=== PATIENT | male | born 1945 | race Hispanic/Latino ===

== ENCOUNTER → 2017-09-17 | Outpatient (CLI) | payer OTHER ==
[~2017-09-17] MED LIST: ASPI-891 PO; BRIM5DRO4 OU; CARB25DR OU; CLOP75TA14 PO; FINA5TAB41 PO; FISH12002 PO; LATA2.5D2 OU; LISI10TA7 PO; MECL-129 PO; METH85CR TP; METO-391 PO; SIMV80TA7 PO; TRAZ-185 PO; VIT1CAPS47 PO
== END | disposition home or self-care (01) ==
LOC: SHCH 15:45
PROVIDERS: ATTEND Internal Medicine Cardiovascular Disease
DX: I10 Essential (primary) hypertension (principal)
CPT/HCPCS: 93306

== ENCOUNTER → 2017-09-21 | Outpatient (CLI) | payer OTHER ==
[~2017-09-21] MED LIST changes: +REGADENOSON 0.4 MG/5 ML PF SYG IVP SCH
== END | disposition home or self-care (01) ==
LOC: SHCH 08:17
PROVIDERS: ATTEND Internal Medicine Cardiovascular Disease
DX: I10 Essential (primary) hypertension (principal)
CPT/HCPCS: 78452; 93017; 96374; A9500 ×2; J2785

== ENCOUNTER → 2018-08-30 | Outpatient (CLI) | payer OTHER ==
[~2018-08-30] MED LIST changes: -ASPI-891 PO; +BRIM10DR16 OU; -BRIM5DRO4 OU; +CARB1DRO21 OP; -FINA5TAB41 PO; -FISH12002 PO; -MECL-129 PO; -METH85CR TP; -REGADENOSON 0.4 MG/5 ML PF SYG IVP SCH; +SERT50TA12 PO; -SIMV80TA7 PO; +SIMV80TA91 PO; +TAMS0.4C32 PO; -TRAZ-185 PO; +TRAZ-187 PO
== END | disposition home or self-care (01) ==
LOC: SHCH 13:32
PROVIDERS: ATTEND Internal Medicine Cardiovascular Disease
DX: I51.7 Cardiomegaly (principal); R94.31 Abnormal electrocardiogram [ECG] [EKG]
CPT/HCPCS: 93306

== ENCOUNTER → 2018-09-03 | Outpatient (CLI) | payer OTHER ==
[~2018-09-03] VITALS: Ht 170.2 cm; Wt 93.0 kg
[~2018-09-03] MED LIST changes: +REGADENOSON 0.4 MG/5 ML PF SYG IVP SCH
== END | disposition home or self-care (01) ==
LOC: SHCH 09:10
PROVIDERS: ATTEND Internal Medicine Cardiovascular Disease
DX: R94.31 Abnormal electrocardiogram [ECG] [EKG] (principal)
CPT/HCPCS: 78452; 93017; 96374; A9500 ×2; J2785

== ENCOUNTER → 2019-12-27 | Outpatient (CLI) | payer OTHER ==
[~2019-12-27] MED LIST changes: -REGADENOSON 0.4 MG/5 ML PF SYG IVP SCH
== END | disposition home or self-care (01) ==
LOC: SHCH 08:01
PROVIDERS: ATTEND Internal Medicine Cardiovascular Disease
DX: I65.23 Occlusion and stenosis of bilateral carotid arteries (principal)
CPT/HCPCS: 93880

== ENCOUNTER → 2022-02-25 | Outpatient (CLI) | payer MEDICARE ==
[~2022-02-25] MED LIST changes: +LATA2.5D14 OU; -LATA2.5D2 OU; +LISI10TA24 PO; -LISI10TA7 PO; +REGADENOSON 0.4 MG/5 ML PF SYG IVP SCH; +SERT-439 PO; -SERT50TA12 PO
== END | disposition home or self-care (01) ==
LOC: SHCH 07:29
PROVIDERS: ATTEND Internal Medicine Cardiovascular Disease
DX: I25.10 Atherosclerotic heart disease of native coronary artery without angina pectoris (principal); Z95.5 Presence of coronary angioplasty implant and graft
CPT/HCPCS: 78452; 96374; 93017; J2785; A9500 ×2

== ENCOUNTER → 2022-09-26 | Outpatient (CLI) | payer MEDICARE ==
[~2022-09-26] MED LIST changes: +CLOP-31 PO; -CLOP75TA14 PO; +REGADENOSON 0.4 MG/5 ML PF SYG IVP ONE; -REGADENOSON 0.4 MG/5 ML PF SYG IVP SCH
== END | disposition home or self-care (01) ==
LOC: SHCH 08:14
PROVIDERS: ATTEND Internal Medicine Cardiovascular Disease
DX: I25.119 Atherosclerotic heart disease of native coronary artery with unspecified angina pectoris (principal); I10 Essential (primary) hypertension; R07.9 Chest pain, unspecified
CPT/HCPCS: 78452; 96374; 93017; J2785; A9500 ×2

== ENCOUNTER → 2023-12-15 | Outpatient (CLI) | payer MEDICARE ==
[~2023-12-15] MED LIST changes: -REGADENOSON 0.4 MG/5 ML PF SYG IVP ONE
== END | disposition home or self-care (01) ==
LOC: SHCH 07:42
PROVIDERS: ATTEND Internal Medicine Cardiovascular Disease
DX: I65.22 Occlusion and stenosis of left carotid artery (principal)
CPT/HCPCS: 93880

== ENCOUNTER → 2024-02-04 | Outpatient (CLI) | payer MEDICARE | END | disposition home or self-care (01) | LOC: SHCH 07:57 | PROVIDERS: ATTEND Internal Medicine Cardiovascular Disease | DX: I08.8 Other rheumatic multiple valve diseases (principal); R94.31 Abnormal electrocardiogram [ECG] [EKG]; I45.10 Unspecified right bundle-branch block | CPT/HCPCS: 93306 ==

== ENCOUNTER → 2024-02-19 | Outpatient (CLI) | payer MEDICARE ==
[2024-02-19] MEDS: REGADENOSON 0.4 MG/5 ML PF SYG IVP ONE (14:07)
== END | disposition home or self-care (01) ==
LOC: SHCH 07:29
PROVIDERS: ATTEND Internal Medicine Cardiovascular Disease
DX: R94.31 Abnormal electrocardiogram [ECG] [EKG] (principal); I45.10 Unspecified right bundle-branch block
CPT/HCPCS: 78452; 93017; J2785; A9500 ×2